=== PATIENT | male | born 1960 | race Caucasian/White ===

== ENCOUNTER 2017-05-30 11:41 | Inpatient (IN) | payer OTHER ==
[~2017-05-30] VITALS: Ht 172.7 cm; Wt 68.5 kg
[2017-05-30 11:43] VITALS: BP 160/96; PULSE 84; RESP 20; TEMP 98.6; O2SAT 97
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
[2017-05-30 14:03] LABS: AUTOMATED NEUTROPHIL # 6.6 TH/MM3 (1.8-7.7); BASOPHIL # 0.1 TH/MM3 (0-0.2); BASOPHIL % 0.6 % (0.0-2.0); EOSINOPHIL % 0.4 % (0.0-4.0); HEMATOCRIT 47.8 % (39.0-51.0); HEMO FLAGS DIFF FINAL; LYMPH % 17.9 % (9.0-44.0); LYMPHOCYTE # 1.6 TH/MM3 (1.0-4.8); MEAN CELL VOLUME 87.1 FL (80.0-100.0); MEAN CORPUSCULAR HEMOGLOBIN 29.6 PG (27.0-34.0); MEAN CORPUSCULAR HGB CONC 33.9 % (32.0-36.0); MONO % 6.5 % (0.0-8.0); NEUT % 74.6 % (16.0-70.0); PLATELET COUNT 258 TH/MM3 (150-450); RED BLOOD COUNT 5.49 MIL/MM3 (4.50-5.90); RED CELL DISTRIBUTION WIDTH 13.3 % (11.6-17.2); WHITE BLOOD COUNT 8.8 TH/MM3 (4.0-11.0)
[2017-05-30 14:13] LABS: ALT (GPT) 40 U/L (12-78); ANION GAP 7 MEQ/L (5-15); AST (GOT) 18 U/L (15-37); BICARBONATE 28.2 MEQ/L (21.0-32.0); BLOOD UREA NITROGEN 11 MG/DL (7-18); CHLORIDE 103 MEQ/L (98-107); GLOMERULAR FILTRATION RATE 69 ML/MIN (>89); POTASSIUM 3.7 MEQ/L (3.5-5.1); SODIUM (NA) 138 MEQ/L (136-145)
[2017-05-30 14:15] LABS: ALKALINE PHOSPHATASE 115 U/L (45-117); TOTAL BILIRUBIN ADULT 0.7 MG/DL (0.2-1.0)
[2017-05-30 15:00] VITALS: BP 164/96; PULSE 81; RESP 18; TEMP 97.8; O2SAT 98
[2017-05-30] MEDS ORDERED: LORazepam 2 MG/ML VIAL IM PRN (17:00)
[2017-05-30] MEDS ORDERED: MAGNESIUM HYDROXIDE SUSP 30 ML CUP PO PRN (17:00)
[2017-05-30] MEDS ORDERED: ALUMINUM/MAGNESIUM/SIMETH 30 ML CUP PO PRN (17:00)
[2017-05-30] MEDS ORDERED: ACETAMINOPHEN 325 MG TAB PO PRN (17:00)
[2017-05-30 17:31] VITALS: BP 142/84; PULSE 70; RESP 18; TEMP 98; O2SAT 98
[2017-05-30 17:33] VITALS: BP 148/84; PULSE 70; RESP 16; TEMP 98; O2SAT 98
[2017-05-30] MEDS: LORazepam 1 MG TAB PO PRN (21:22)
[2017-05-30] MEDS: TEMAZEPAM 15 MG CAP PO SCH (21:22)
[2017-05-31 06:13] VITALS: BP 100/59; PULSE 68; RESP 18; TEMP 97.5; O2SAT 96
[2017-05-31 10:15] LABS: FREE T4 1.29 NG/DL (0.76-1.46); HDL CHOLESTEROL 53.4 MG/DL (40.0-60.0); LDL CHOLESTEROL 153 MG/DL (0-99)
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
[2017-05-31 17:24] VITALS: BP 134/92; PULSE 105; RESP 18; TEMP 98.2; O2SAT 98
[2017-05-31 18:02] LABS: HEMOGLOBIN A1a 0.9 %; HEMOGLOBIN A1b 1.5 %; HEMOGLOBIN Ao 86.5 %; HEMOGLOBIN P3 3.5 %
[2017-05-31] MEDS: TEMAZEPAM 15 MG CAP PO SCH (21:53)
[2017-06-01 06:11] VITALS: BP 112/73; PULSE 76; RESP 18; TEMP 98.1; O2SAT 97
[2017-06-01] MEDS: ESCITALOPRAM OXALATE 10 MG TAB PO SCH (08:48)
--- NOTE | 2017-06-01 15:43 | PD.TTN ---
Patient Problems 1. Discharge planning 2. Medication compliance 3. Knowledge deficit 4. Lack of coping skills Progress Toward Goals Provider Present: Dr. Mark Becerra Provider Input: Patient will be starting medication regiment while at [place]. Nurse(s) Input: Patient is compliant with medications and is denying any side effects. Patient is isolative and continues to show depressed features. Psychiatric Counselors Present: VICENTE Luna Psych Therapist Input: Patient has low affect and continues to have depressed feelings. Patient shows anxious features and has concerns about his job. Counselor had faxed over letter stating patient has been hospitalized and will continue to work with patient in regards to proper paperwork. Bianca Patricio [facility] Jun 01, 2017 15:43
[2017-06-01 18:38] VITALS: BP 150/72; PULSE 67; RESP 18; TEMP 97.3; O2SAT 97
--- NOTE | 2017-06-01 21:00 | EKG ---
Date Performed: 05/31/2017 Time Performed: 15:16:26 PTAGE: 56 years EKG: Sinus rhythm NONSPECIFIC T-WAVE ABNORMALITY BORDERLINE ECG NO PREVIOUS TRACING DOCTOR: Kirk Marion Interpretating Date/Time 06/01/2017 20:51:34
[2017-06-01] MEDS: TEMAZEPAM 15 MG CAP PO SCH (21:56)
[2017-06-02 05:59] VITALS: BP 141/66; PULSE 72; RESP 16; TEMP 98.7
[2017-06-02] MEDS: ESCITALOPRAM OXALATE 10 MG TAB PO SCH (09:34)
[2017-06-02 18:08] VITALS: BP 152/84; PULSE 80; RESP 17; TEMP 98.8; O2SAT 98
[2017-06-02] MEDS: TEMAZEPAM 15 MG CAP PO SCH (20:44)
[2017-06-02] MEDS: LORazepam 0.5 MG TAB PO SCH (20:44)
[2017-06-03 05:11] VITALS: BP 105/59; PULSE 60; RESP 16; TEMP 97.9; O2SAT 97
[2017-06-03] MEDS: ESCITALOPRAM OXALATE 10 MG TAB PO SCH (09:23)
[2017-06-03] MEDS: LORazepam 0.5 MG TAB PO SCH ×2 (09:23→21:34)
[2017-06-03 18:20] VITALS: BP 150/84; PULSE 83; RESP 17; TEMP 98.6; O2SAT 97
[2017-06-03] MEDS: TEMAZEPAM 15 MG CAP PO SCH (21:34)
[2017-06-04 06:18] VITALS: BP 103/62; PULSE 72; RESP 16; TEMP 97.5; O2SAT 96
[2017-06-04] MEDS: LORazepam 0.5 MG TAB PO SCH (08:53)
[2017-06-04] MEDS: ESCITALOPRAM OXALATE 10 MG TAB PO SCH (08:53)
[2017-06-04 18:34] VITALS: BP 127/82; PULSE 83; RESP 18; TEMP 98.3; O2SAT 97
[2017-06-04] MEDS: TEMAZEPAM 15 MG CAP PO SCH (22:38)
[2017-06-04] MEDS: LORazepam 1 MG TAB PO SCH (22:38)
[2017-06-05 06:26] VITALS: BP 102/67; PULSE 80; RESP 18; TEMP 98.1; O2SAT 97
[2017-06-05] MEDS: ESCITALOPRAM OXALATE 10 MG TAB PO SCH (08:46)
[2017-06-05] MEDS: LORazepam 1 MG TAB PO PRN (11:16)
[2017-06-05 18:24] VITALS: BP 114/76; PULSE 73; RESP 18; TEMP 98.6; O2SAT 98
[2017-06-05] MEDS: LORazepam 1 MG TAB PO SCH (21:46)
[2017-06-05] MEDS: TEMAZEPAM 15 MG CAP PO SCH (21:47)
[2017-06-06 04:36] VITALS: BP 99/54; PULSE 86; RESP 17; TEMP 97.6; O2SAT 97
[2017-06-06] MEDS: ESCITALOPRAM OXALATE 10 MG TAB PO SCH (09:08)
[2017-06-06] MEDS ORDERED: LORA-474 PO (13:28)
[2017-06-06] MEDS ORDERED: ESCI10TA PO (13:28)
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
== END 2017-06-06 17:30 | disposition home or self-care (01) | DRG 885 ==
LOC: NEPD 11:41 → NEDA 16:38 → H260 17:00
PROVIDERS: ADMIT Psychiatry & Neurology Psychiatry; ATTEND Psychiatry & Neurology Psychiatry
DX: F32.1 Major depressive disorder, single episode, moderate (principal); F41.9 Anxiety disorder, unspecified; F60.3 Borderline personality disorder
CPT/HCPCS: 80053; 80061; 80307; 83036; 84439; 84443; 85025; 93005